=== PATIENT | female | born 1965 | race African-American/Black ===

== ENCOUNTER 2018-01-07 23:38 | Emergency (ER) | payer OTHER ==
[2018-01-08 00:39] VITALS: BP 144/77; PULSE 84; TEMP 97.8; BMI 31.3
[2018-01-08] MEDS ORDERED: ALBUTEROL SO4 2.5/IPRATROPIUM 0.5 INH SOL 3 ML VIAL.NEB. NEB ONE (01:10)
--- NOTE | 2018-01-08 01:10 | PDOC ---
History of Present Illness - General Chief Complaint: Shortness of Breath Stated Complaint: DIFFICULTY BREATHING Time Seen by Provider: 01/08/18 00:45 - History of Present Illness Initial Comments: 01/08/18 01:05 52 F presenting to ED with 1 day of chest pressure and SOB. Pt states that she feels like someone filled her lungs with water, making it hard to catch her breath. She endorses mild chest pressure associated with the SOB. Denies F/C/ Cough. Pt states that this first began a month ago. She has been to [facility] multiple times. She was admitted once and told that she had congestive heart failure. However, pt denies following up with a meat grinder at any point. Most recently, she was at [facility] 3 days ago for similar complaint of SOB. She was given a nebulizer and discharged home. Pt is active smoker but denies h/o COPD/asthma. Nonetheless, she has an albuterol pump which she has been using with some relief. Pt denies any significant leg swelling. Is not on any other medications. Past History - Past Medical History Allergies/Adverse Reactions: Allergies Allergy/AdvReac Type Severity Reaction Status Date / Time No Known Allergies Allergy Verified 10/01/13 08:23 Home Medications: Ambulatory Orders Albuterol Sulfate Inhaler - [Ventolin HFA Inhaler -] PRN 08/19/13 Oxycodone HCl/Acetaminophen [Percocet 5-325 mg Tablet -] 1 - 2 tab PO Q6H PRN # 15 tablet 10/01/13 Sulfamethoxazole/Trimethoprim [Bactrim DS -] 1 tab PO BID #28 tablet 10/01/13 Albuterol 0.083% Nebulizer Jessica [Ventolin 0.083% Nebulizer Soln -] 1 neb NEB Q6H #30 vial 01/08/18 Albuterol Sulfate Inhaler - [Ventolin HFA Inhaler -] 2 inh IH Q6H #1 inh Guaifenesin AC [Robitussin AC] 10 ml PO TID #100 liquid MDD 30 01/08/18 Methylprednisolone [Medrol Dose Gigi] 4 mg PO ASDIR #21 tablet 01/08/18 Asthma: Yes COPD: Yes HTN: Yes - Suicide/Smoking/Psychosocial Hx Smoking Status: Yes Smoking History: Current every day smoker Have you smoked in the past 12 months: Yes Number of Cigarettes Smoked Daily: 2 Information on smoking cessation initiated: No Hx Alcohol Use: No Drug/Substance Use Hx: Yes Substance Use Type: None Hx Substance Use Treatment: No Review of Systems - Review of Systems Comments:: 01/08/18 01:08 "GENERAL/CONSTITUTIONAL: No fever or chills. No weakness. HEAD, EYES, EARS, NOSE AND THROAT: No change in vision. No ear pain or discharge. No sore throat. CARDIOVASCULAR: (+) Chest pain and shortness of breath. RESPIRATORY: No Cough, No wheezing, or hemoptysis. GASTROINTESTINAL: No nausea, vomiting, diarrhea or constipation. GENITOURINARY: No dysuria, frequency, or change in urination. MUSCULOSKELETAL: No joint or muscle swelling or pain. No neck or back pain. SKIN: No rash NEUROLOGIC: No headache, vertigo, loss of consciousness, or change in strength/ sensation. ENDOCRINE: No increased thirst. No abnormal weight change. HEMATOLOGIC/LYMPHATIC: No anemia, easy bleeding, or history of blood clots. ALLERGIC/IMMUNOLOGIC: No hives or skin allergy." *Physical Exam - Vital Signs Last Vital Signs Temp Pulse Resp BP Pulse Ox 97.8 F 84 20 144/77 100 01/08/18 00:36 01/08/18 00:36 01/08/18 00:36 01/08/18 00:36 01/08/18 00:36 - Physical Exam Comments: 01/08/18 01:08 "GENERAL: Awake, alert, and fully oriented, in no acute distress HEAD: No signs of trauma EYES: PERRLA, EOMI, sclera anicteric, conjunctiva clear ENT: Auricles normal inspection, hearing grossly normal, nares patent, oropharynx clear without exudates. Moist mucosa NECK: Nontender, no stepoffs, Normal ROM, supple, no lymphadenopathy, JVD, or masses LUNGS: Breath sounds equal, clear to auscultation bilaterally. No wheezes, and no crackles HEART: Regular rate and rhythm, normal S1 and S2, no murmurs, rubs or gallops ABDOMEN: Soft, nontender, normoactive bowel sounds. No guarding, no rebound. No masses EXTREMITIES: Normal range of motion, no edema. No clubbing or cyanosis. No cords, erythema, or tenderness NEUROLOGICAL: Cranial nerves II through XII intact. 5/5 strength and sensation in all extremities, Normal speech, normal gait, normal cerebellar function SKIN: Warm, Dry, normal turgor, no rashes or lesions noted." Heart Score/ECG Review - History History: Slightly suspicious - Electrocardiogram EKG: Non specific repolarization disturbance - Age Age: 45-65 - Risk Factors Based on the list above the patient has:: No risk factors known - Troponin Troponin: </= normal limit - Score Heart Score - Total: 2 - ECG Impressions Comment:: 01/08/18 01:26 NSR, no AB/STDs, TWI in V5-V6 and aVL, intervals wnl, L axis deviation ED Treatment Course - LABORATORY CBC & Chemistry Diagram: 01/08/18 01:10 01/08/18 01:10 - RADIOLOGY Radiology Studies Ordered: Category Date Time Status CHEST PA & LAT [RAD] Stat Radiology 01/08/18 00:50 Ordered Medical Decision Making - Medical Decision Making 01/08/18 01:09 52 F with CP and SOB. Pt reportedly has h/o CHF but denies any other medical problems. Pt with no obvious signs of volume overload today. Lung exam is clear without wheezing, but given that pt reported some improvement with albuterol pump, consider COPD/asthma as pt is active smoker. Pt with no DVT/PE risk factors. Does not PERC out due to age, but pt has wells score of 0. No clinical signs of DVT. Vitals wnl. Pt has lateral TWI on EKG with no prior to compare but history is not consistent with ACS. Pt's chest tightness more likely related to cough. Nonetheless, will r/o ACS with trop. - Labs, trop, BNP - CXR - Trial of nebulizers - Reassess 01/08/18 02:33 Labs notable for BNP 3000, otherwise unremarkable. Unclear what pt's baseline BNP is. Pt with no clinical signs of volume overload, XR without clear congestive changes. Pt's SOB more likely related to COPD. Will order additional nebs and steroids. Pt signed out to Dr. Dominique @ 2am, pending re-evaluation after nebs and steroids. Case discussed in detail with oncoming Emergency Physician including history, physical exam and ancillary studies. Oncoming Emergency Physician has assumed care for the patient and will complete the evaluation and treatment. Patient is aware of the plan. *DC/Admit/Observation/Transfer Diagnosis at time of Disposition: Cough - Discharge Dispostion Disposition: HOME Condition at time of disposition: Stable - Prescriptions Prescriptions: Albuterol 0.083% Nebulizer Jessica [Ventolin 0.083% Nebulizer Soln -] 1 neb NEB Q6H #30 vial Albuterol Sulfate Inhaler - [Ventolin HFA Inhaler -] 2 inh IH Q6H #1 inh Guaifenesin AC [Robitussin AC] 10 ml PO TID #100 liquid MDD 30 Methylprednisolone [Medrol Dose Gigi] 4 mg PO ASDIR #21 tablet - Referrals Referrals: Tomasz Velazco MD [Staff Physician] - Sara Taylor MD [Staff Physician] - - Patient Instructions Printed Discharge Instructions: DI for Cough -- Adult - Post Discharge Activity - Attestations Physician Attestion: 01/09/18 00:53 I, Dr. John Knott MD, attest that this document has been prepared under my direction and personally reviewed by me in its entirety. I further attest, that it accurately reflects all work, treatment, procedures and medical decision -making performed by me.
[2018-01-08] MEDS: ALBUTEROL SO4 2.5/IPRATROPIUM 0.5 INH SOL 3 ML VIAL.NEB. NEB SCH ×3 (01:17→02:09)
[2018-01-08 01:35] LABS: BASO % 0.7 % (0-2.0); EOS % 0.4 % (0-4.5); HEMATOCRIT 35.7 % (32.4-45.2); LYMPH % 16.2 % (8-40); MCH 29.6 pg (25.7-33.7); MCHC 33.6 g/dl (32.0-36.0); MEAN CELL VOLUME 88.1 fl (80-96); MEAN PLT VOLUME 7.9 fl (7.5-11.1); MONO % 4.8 % (3.8-10.2); NEUT % 77.9 % (42.8-82.8); PLATELET COUNT 270 K/MM3 (134-434); RBC 4.05 M/mm3 (3.60-5.2); RDW 13.9 % (11.6-15.6)
[2018-01-08 01:38] LABS: VENOUS PC02 39.2 mmHg (38-52); VENOUS PH 7.41 (7.32-7.42)
[2018-01-08 02:06] LABS: ALBUMIN 3.3 g/dl (3.4-5.0); ANION GAP 10 (8-16); BILIRUBIN,TOTAL 0.4 mg/dL (0.2-1.0); BLOOD UREA NITROGEN 19 mg/dL (7-18); CALCIUM 8.4 mg/dL (8.5-10.1); CHLORIDE 107 mmol/L (98-107); CO2 25 mmol/L (21-32); CREATININE 0.9 mg/dL (0.55-1.02); GLUCOSE,RANDOM 88 mg/dL (74-106); SGOT/AST 23 U/L (15-37); SGPT/ALT 30 U/L (12-78); SODIUM 142 mmol/L (136-145); TOT PROT 6.4 g/dl (6.4-8.2)
[2018-01-08 02:07] LABS: ALK PHOS 79 U/L (45-117)
[2018-01-08 02:08] LABS: N-TERMINAL BNP 3980.27 pg/ml (5-125)
[2018-01-08] MEDS ORDERED: methylPREDNISolone NA SUCC 125 MG/2 ML VIAL IVPUSH ONE (02:24)
[2018-01-08] MEDS ORDERED: methylPREDNISolone NA SUCC 125 MG/2 ML VIAL ONE (02:29)
[2018-01-08] MEDS ORDERED: guaiFENesin/CODEINE 10 ML UNIT-DOSE CUPS PO ONE (03:25)
[2018-01-08] MEDS ORDERED: guaiFENesin/CODEINE 5 ML UNIT-DOSE CUPS PO ONE (03:28)
--- NOTE | 2018-01-08 03:32 | PDOC ---
*Physical Exam - Vital Signs Last Vital Signs Temp Pulse Resp BP Pulse Ox 97.8 F 84 20 144/77 100 01/08/18 00:36 01/08/18 00:36 01/08/18 00:36 01/08/18 00:36 01/08/18 00:36 ED Treatment Course - LABORATORY CBC & Chemistry Diagram: 01/08/18 01:10 01/08/18 01:10 - ADDITIONAL ORDERS Additional order review: Laboratory Results 01/08/18 01/08/18 01/08/18 01:10 01:10 01:10 VBG pH 7.41 POC VBG pCO2 39.2 POC VBG pO2 40.0 Mixed VBG HCO3 24.3 Sodium 142 Potassium 4.0 Chloride 107 Carbon Dioxide 25 Anion Gap 10 BUN 19 H Creatinine 0.9 Creat Clearance w eGFR > 60 Random Glucose 88 Calcium 8.4 L Total Bilirubin 0.4 AST 23 ALT 30 Alkaline Phosphatase 79 Creatine Kinase 252 H Creatine Kinase Index 0.5 CK-MB (CK-2) 1.261 Troponin I 0.02 B-Natriuretic Peptide 3980.27 H Total Protein 6.4 Albumin 3.3 L 01/08/18 01:10 RBC 4.05 MCV 88.1 MCHC 33.6 RDW 13.9 MPV 7.9 Neutrophils % 77.9 Lymphocytes % 16.2 D Monocytes % 4.8 Eosinophils % 0.4 D Basophils % 0.7 - Medications Given in the ED: ED Medications Discontinued Medications Generic Name Dose Route Start Last Admin Trade Name Freq PRN Reason Stop Dose Admin Albuterol/Ipratropium 1 amp 01/08/18 01:00 01/08/18 02:09 Duoneb - NEB 01/08/18 01:46 1 amp Q15M AWAIS Administration Methylprednisolone Sodium Succinate 125 mg 01/08/18 02:24 01/08/18 03:06 Solu-Medrol - IVPUSH 01/08/18 02:25 125 mg ONCE ONE Administration Medical Decision Making - Medical Decision Making 01/08/18 03:30 Pt feels better after treatment in the department. Pt still cough and would like something for cough. Pt discharged and medications transmitted to pharmacy *DC/Admit/Observation/Transfer Diagnosis at time of Disposition: Cough - Discharge Dispostion Disposition: HOME Condition at time of disposition: Stable Admit: No - Prescriptions Prescriptions: Albuterol 0.083% Nebulizer Jessica [Ventolin 0.083% Nebulizer Soln -] 1 neb NEB Q6H #30 vial Albuterol Sulfate Inhaler - [Ventolin HFA Inhaler -] 2 inh IH Q6H #1 inh Guaifenesin AC [Robitussin AC] 10 ml PO TID #100 liquid MDD 30 Methylprednisolone [Medrol Dose Gigi] 4 mg PO ASDIR #21 tablet - Referrals Referrals: Tomasz Velazco MD [Staff Physician] - Sara Taylor MD [Staff Physician] - - Patient Instructions Printed Discharge Instructions: DI for Cough -- Adult - Post Discharge Activity
--- NOTE | 2018-01-08 16:35 | EKG ---
Test Reason : Blood Pressure : / mmHG Vent. Rate : 084 BPM Atrial Rate : 084 BPM P-R Int : 190 ms QRS Dur : 088 ms QT Int : 368 ms P-R-T Axes : 056 -40 094 degrees QTc Int : 434 ms NORMAL SINUS RHYTHM POSSIBLE LEFT ATRIAL ENLARGEMENT LEFT AXIS DEVIATION LEFT VENTRICULAR HYPERTROPHY NONSPECIFIC T WAVE ABNORMALITY ABNORMAL ECG NO PREVIOUS ECGS AVAILABLE Confirmed by ALONDRA MORTON MD ([id number]) on 01/08/2018 4:35:20 PM Referred By: Confirmed By:ALONDRA MORTON MD
== END 2018-01-08 04:05 | disposition home or self-care (01) ==
LOC: JER 23:38
PROC: 3E0F7GC Introduction of Other Therapeutic Substance into Respiratory Tract, Via Natural or Artificial Opening (ICD-10-PCS; principal; 2018-01-07)
PROC: 3E033GC Introduction of Other Therapeutic Substance into Peripheral Vein, Percutaneous Approach (ICD-10-PCS; 2018-01-07)
DX: R05 Cough (principal)
CPT/HCPCS: 36415; 71046-TC-FY; 80053; 82550; 82553; 82803; 83880; 84484; 85025; 93005; 93010; 99281-25; J7620

== ENCOUNTER 2018-01-17 20:58 | Observation (INO) | payer OTHER ==
--- NOTE | 2018-01-17 21:19 | PDOC ---
History of Present Illness - General Chief Complaint: Shortness of Breath Stated Complaint: SHORTNESS OF BREATH Time Seen by Provider: 01/17/18 21:18 History Source: Patient Exam Limitations: No Limitations - History of Present Illness Initial Comments: 01/17/18 22:21 52 year old female with pmh of anxiety, HTN presented to the hospital with one day history of sever shortness of breath , diaphoresis, heart racing . she was sleeping around 6pm when all the symptoms start , she reports chest tightness , it feels like some one is draping water on her lungs, she experienced these episodes one a month , she was in ED here 2 weeks ago for same reasons.She reports orthopnea and dyspnea on exertion since October she start using 3-4 pillows at night , she get sob with less than a block. She denies any fever, chills, N/V/D/C , she denies any urinary symptoms, n headache , blurry vision was reported. She run of her hydroxapin 2 weeks ago. PMH: HTN , PSH: denies Allergies : denies Meds: Lisinopril 60 daily (40+20) daily, Furosemide 20 mg po daily , hydroxysine 50 mg po daily , she run out of this one 2 weeks ago Social: amoke tocacco 2-4 cig day since age of 18, drink alcohol socially,she smoke Marijuana last use 24 hour ago FH: HTN Physical Exam: General: Well norished in NAD HEad : NC/At , MM mebrance , NELDA , EOMI Neck: supple Lungs: CTA B/L , no wheezes, no accessory muscle use Heart: RRR, 3/6 holosystolic murmur LUSB, RUSB, LLSB, No RG Abdomen: soft, ND, NT , + BS , Legs: no edema , +2 DP pulse Neuro: no focal deficit Psych: appropriate mood and effect. DD: Panic attach COPD exacerbation CHF WorK up: CBC, CMP EKG cardiac profile BNP cxr 01/17/18 23:48 CXR wth no acute pathology BNP 1400 trend dwon from last visit 92603 trop >0.02 01/18/18 00:57 Past History - Past Medical History Allergies/Adverse Reactions: Allergies Allergy/AdvReac Type Severity Reaction Status Date / Time No Known Allergies Allergy Verified 01/17/18 21:04 Home Medications: Ambulatory Orders Albuterol 0.083% Nebulizer Jessica [Ventolin 0.083% Nebulizer Soln -] 1 neb NEB Q6H #30 vial 01/08/18 Guaifenesin AC [Robitussin AC] 10 ml PO TID #100 liquid MDD 30 01/08/18 Methylprednisolone [Medrol Dose Gigi] 4 mg PO ASDIR #21 tablet 01/08/18 Asthma: Yes COPD: Yes HTN: Yes - Suicide/Smoking/Psychosocial Hx Smoking Status: Yes Smoking History: Never smoked Have you smoked in the past 12 months: No Number of Cigarettes Smoked Daily: 2 Information on smoking cessation initiated: No Hx Alcohol Use: No Drug/Substance Use Hx: No Substance Use Type: None Hx Substance Use Treatment: No *Physical Exam - Vital Signs Last Vital Signs Temp Pulse Resp BP Pulse Ox 98.2 F 76 20 144/60 99 01/17/18 21:00 01/17/18 21:00 01/17/18 21:00 01/17/18 21:00 01/17/18 21:00 Heart Score/ECG Review - History History: Slightly suspicious - Electrocardiogram EKG: Non specific repolarization disturbance - Age Age: 45-65 - Risk Factors Risk Factors Heart Score: Yes Hx Hypertension, Yes Smoking History, Yes Hx Obesity Based on the list above the patient has:: 1-2 risk factors - Troponin Troponin: </= normal limit - Score Heart Score - Total: 3 - ECG Intrepretation Rhythm: Regular Rhythm (NSR, Possible left atrial enlargemnet , t wave abnormality compare to previous ekg , vent rate 75, PA interval 182, QRS durartion 86ms , QTC 444) ED Treatment Course - LABORATORY CBC & Chemistry Diagram: 01/17/18 22:40 01/17/18 22:40 *DC/Admit/Observation/Transfer Diagnosis at time of Disposition: Shortness of breath - Discharge Dispostion Admit: Yes - Referrals Referrals: ON STAFF,NOT [Primary Care Provider] - - Patient Instructions - Post Discharge Activity
[2018-01-17] MEDS ORDERED: ALBUTEROL SO4 0.083% IH SOL 2.5 MG/3 ML VIAL.NEB. NEB ONE (22:16)
[2018-01-17] MEDS ORDERED: ALBUTEROL SO4 2.5/IPRATROPIUM 0.5 INH SOL 3 ML VIAL.NEB. NEB ONE (22:52)
[2018-01-17 22:54] LABS: BASO % 0.8 % (0-2.0); HEMATOCRIT 35.8 % (32.4-45.2); LYMPH % 33.2 % (8-40); MCH 29.7 pg (25.7-33.7); MCHC 33.3 g/dl (32.0-36.0); MEAN PLT VOLUME 7.8 fl (7.5-11.1); MONO % 5.3 % (3.8-10.2); NEUT % 57.7 % (42.8-82.8); PLATELET COUNT 271 K/MM3 (134-434); RBC 4.03 M/mm3 (3.60-5.2); RDW 15.5 % (11.6-15.6); WHITE BLOOD COUNT 6.8 K/mm3 (4.0-10.0)
[2018-01-17 23:17] LABS: ANION GAP 9 (8-16); BILIRUBIN,TOTAL 0.3 mg/dL (0.2-1.0); BLOOD UREA NITROGEN 13 mg/dL (7-18); CALCIUM 7.7 mg/dL (8.5-10.1); CHLORIDE 108 mmol/L (98-107); CO2 24 mmol/L (21-32); GLUCOSE,RANDOM 95 mg/dL (74-106); SGPT/ALT 22 U/L (12-78); SODIUM 141 mmol/L (136-145); TOT PROT 6.1 g/dl (6.4-8.2)
[2018-01-17 23:19] LABS: ALK PHOS 64 U/L (45-117)
[2018-01-17 23:28] LABS: POTASSIUM 3.9 mmol/L (3.5-5.1); SGOT/AST 17 U/L (15-37)
[2018-01-17] MEDS ORDERED: LORazepam 1 MG TABLET PO ONE (23:46)
--- NOTE | 2018-01-18 00:09 | PDOC ---
Attending Attestation - Resident Resident Name: Markel Jackman - ED Attending Attestation I have performed the following: I have examined & evaluated the patient, The case was reviewed & discussed with the resident, I agree w/resident's findings & plan, Exceptions are as noted - HPI HPI: 01/18/18 00:04 The patient is a 52 year old female with history of cigarette smoking, hypertension, anxiety, who presents to the ED complaining of shortness of breath and chest tightness that began this morning. She states that her symptoms are intermittent with no known triggering factors. Her chest tightness is not pleuritic or exertional. She states that her symptoms often come and go, lasting only a few minutes at a time. She was seen here in the ED two weeks ago by myself for similar complaints. Pt denies fever or chills. No nausea, vomiting , or diaphoresis. No lightheadedness or LOC. She does endorse smoking marijuana today. Denies leg swelling. Denies recent immobilization or travel. Not on estrogen. No h/o DVT. - Physicial Exam PE: 01/18/18 00:05 "GENERAL: Awake, alert, and fully oriented, in no acute distress HEAD: No signs of trauma EYES: PERRLA, EOMI, sclera anicteric, conjunctiva clear ENT: Auricles normal inspection, hearing grossly normal, nares patent, oropharynx clear without exudates. Moist mucosa NECK: Nontender, no stepoffs, Normal ROM, supple, no lymphadenopathy, JVD, or masses LUNGS: Breath sounds equal, clear to auscultation bilaterally. No wheezes, and no crackles HEART: Regular rate and rhythm, normal S1 and S2, no murmurs, rubs or gallops ABDOMEN: Soft, nontender, normoactive bowel sounds. No guarding, no rebound. No masses EXTREMITIES: Normal range of motion, no edema. No clubbing or cyanosis. No cords, erythema, or tenderness NEUROLOGICAL: Cranial nerves II through XII intact. 5/5 strength and sensation in all extremities, Normal speech, normal gait, normal cerebellar function SKIN: Warm, Dry, normal turgor, no rashes or lesions noted. " - Medical Decision Making 01/18/18 00:10 52 F with SOB. No wheezing on exam to suggest asthma/COPD. No signs of volume overload on exam. Suspect that this is anxiety related. However, pt has EKG with new deep TW inversions in lateral leads, as well as new T wave flattening in inferior leads. Will need ACS r/o. - Labs, trop, BNP - CXR - Trial of nebs - Admit tele Heart Score/ECG Review - History History: Slightly suspicious - Electrocardiogram EKG: Non specific repolarization disturbance - Age Age: 45-65 - Risk Factors Risk Factors Heart Score: Yes Hx Hypertension, Yes Smoking History, Yes Hx Obesity Based on the list above the patient has:: >/=3 risk factors or Hx atherosclerotic disease - Troponin Troponin: </= normal limit - Score Heart Score - Total: 4 - ECG Impressions Comment:: 01/18/18 00:13 NSR, no AB/STDs, TWI in V4-V6, TW flattening in II, III, aVF (new since prior EKG 10 days ago), intervals wnl, L axis deviation
[2018-01-18] MEDS ORDERED: LORazepam 0.5 MG TABLET ONE (00:28)
--- NOTE | 2018-01-18 01:14 | HP ---
CHIEF COMPLAINT: PCP: HISTORY OF PRESENT ILLNESS: The patient is a 52 yo f w/ PMH HTN, Anxiety, CHF who comes into the ED c/o a 1 day history of acute onset SOB, diaphoresis, palpitations and chest tightness. Patient states that she was woken up from sleep with these symptoms. The patient has had several similar episodes in the past. Per the patient, she has had approx. 1 similar episode per month since October. She has been seen at multiple other hospitals for the same problem without results. Patient denies fevers, chills, nausea, vomiting, diarrhea, constipation. Patient fell asleep multiple times during the interview. ER course was notable for: (1) BNP 1452 (2) CXR WNL (3) EKG showing new t wave abnormalities since last EKG 2 weeks ago Recent Travel: none PAST MEDICAL HISTORY: anxiety HTN CHF PAST SURGICAL HISTORY: Social History: Smoking: currently smoking 1-2 cigarettes daily since she was 18 Alcohol: socially Drugs: marijuana, last use 24 hrs ago Family History: non-contributory Allergies No Known Allergies Allergy (Verified 01/17/18 21:04) HOME MEDICATIONS: Home Medications Medication Instructions Recorded Albuterol 0.083% Nebulizer Jessica 1 neb NEB Q6H #30 vial 01/08/18 [Ventolin 0.083% Nebulizer Soln -] Guaifenesin AC [Robitussin AC] 10 ml PO TID #100 liquid MDD 30 01/08/18 Methylprednisolone [Medrol Dose 4 mg PO ASDIR #21 tablet 01/08/18 Gigi] REVIEW OF SYSTEMS CONSTITUTIONAL: Absent: fever, chills, diaphoresis, generalized weakness, malaise, loss of appetite, weight change HEENT: Absent: rhinorrhea, nasal congestion, throat pain, throat swelling, difficulty swallowing, mouth swelling, ear pain, eye pain, visual changes CARDIOVASCULAR: Absent: syncope, irregular heart rate, lightheadedness, peripheral edema RESPIRATORY: Absent: cough, dyspnea with exertion, orthopnea, wheezing, stridor, hemoptysis GASTROINTESTINAL: Absent: abdominal pain, abdominal distension, nausea, vomiting, diarrhea, constipation, melena, hematochezia GENITOURINARY: Absent: dysuria, frequency, urgency, hesitancy, hematuria, flank pain, genital pain MUSCULOSKELETAL: Absent: myalgia, arthralgia, joint swelling, back pain, neck pain SKIN: Absent: rash, itching, pallor HEMATOLOGIC/IMMUNOLOGIC: Absent: easy bleeding, easy bruising, lymphadenopathy, frequent infections ENDOCRINE: Absent: unexplained weight gain, unexplained weight loss, heat intolerance, cold intolerance NEUROLOGIC: Absent: headache, focal weakness or paresthesias, dizziness, unsteady gait, seizure, mental status changes, bladder or bowel incontinence PSYCHIATRIC: Absent: anxiety, depression, suicidal or homicidal ideation, hallucinations. PHYSICAL EXAMINATION Vital Signs - 24 hr 01/17/18 21:00 Temperature 98.2 F Pulse Rate 76 Respiratory 20 Rate Blood Pressure 144/60 O2 Sat by Pulse 99 Oximetry (%) GENERAL: Awake, alert, and fully oriented, in no acute distress. Patient appears awake while talking, but falls asleep multiple times during the interview. HEAD: Normal with no signs of trauma. NECK: Normal range of motion, supple without lymphadenopathy, JVD, or masses. LUNGS: Breath sounds equal, clear to auscultation bilaterally. No wheezes, and no crackles. No accessory muscle use. HEART: Regular rate and rhythm, normal S1 and S2. Diastolic decrescendo murmur heard at the right sternal border. ABDOMEN: Soft, nontender, not distended, normoactive bowel sounds, no guarding, no rebound, no masses. No hepatomegaly or splenomegaly. LOWER EXTREMITIES: 2+ pulses, warm, well-perfused. No calf tenderness. No peripheral edema. NEUROLOGICAL: Cranial nerves II-X intact. Normal speech. SKIN: Warm, dry, normal turgor, no rashes or lesions noted, normal capillary refill. Laboratory Results - last 24 hr 01/17/18 01/17/18 01/17/18 22:40 22:40 22:40 WBC 6.8 RBC 4.03 Hgb 12.0 Hct 35.8 MCV 89.0 MCH 29.7 MCHC 33.3 RDW 15.5 D Plt Count 271 MPV 7.8 Neutrophils % 57.7 D Lymphocytes % 33.2 D Monocytes % 5.3 Eosinophils % 3.0 D Basophils % 0.8 Sodium 141 Potassium 3.9 Chloride 108 H Carbon Dioxide 24 Anion Gap 9 BUN 13 Creatinine 1.0 Creat Clearance w eGFR 58.69 Random Glucose 95 Calcium 7.7 L Total Bilirubin 0.3 D AST 17 ALT 22 Alkaline Phosphatase 64 Creatine Kinase 89 Troponin I 0.02 B-Natriuretic Peptide Total Protein 6.1 L Albumin 3.0 L 01/17/18 22:40 WBC RBC Hgb Hct MCV MCH MCHC RDW Plt Count MPV Neutrophils % Lymphocytes % Monocytes % Eosinophils % Basophils % Sodium Potassium Chloride Carbon Dioxide Anion Gap BUN Creatinine Creat Clearance w eGFR Random Glucose Calcium Total Bilirubin AST ALT Alkaline Phosphatase Creatine Kinase Troponin I B-Natriuretic Peptide 1452.21 H Total Protein Albumin ASSESSMENT/PLAN: The patient is a 52 yo f w/ PMH CHF and HTN who is being admitted for further workup of a murmur and EKG changes. #SOB, chest pain and palpitations likely 2/2 anxiety r/o arrhythmia -Trop negative x1 -EKG showing new t wave abnormalities -trend trops -cardio consult #diastolic decrescendo murmur -Echo in am #HTN -according to patient, home meds include a 40mg and 20mg pill of lisinopril daily -will administer lisinopril 40mg until home meds verified #CHF -c/w home lasix 40 #Anxiety -holding home hydroxyzine 50mg #FEN -no fluids indicated -lytes WNL -Sodium controlled diet #prophy -patient ambulatory, no prophy indicated #Dispo -Admit to tele Obs Visit type - Emergency Visit Emergency Visit: Yes ED Registration Date: 01/18/18 Care time: The patient presented to the Emergency Department on the above date and was hospitalized for further evaluation of their emergent condition. - New Patient This patient is new to me today: Yes Date on this admission: 01/18/18 - Critical Care Critical Care patient: No Hospitalist Screening - Colonoscopy Questionnaire Colonoscopy Questionnaire: Colonoscopy Questionnaire - Patient: 50 - 75 years old and never had a screening colonoscopy: Unknown History of colon or rectal polyps, or CA: Unknown History of IBD, Crohn's disease or UC: Unknown History of abdominal radiation therapy as a child: Unknown - Relative: 1 with colon or rectal CA, or polyps at age 60 or younger: Unknown Colon or rectal CA diagnosed at age 45 or younger: Unknown Multiple relatives with colon or rectal CA: Unknown - Outcome: Screening Result: Negative Screen
--- NOTE | 2018-01-18 01:23 | PN ---
Teaching Attending Note Name of Resident: Fernando Mata ATTENDING PHYSICIAN STATEMENT I saw and evaluated the patient. I reviewed the resident's note and discussed the case with the resident. I agree with the resident's findings and plan as documented. SUBJECTIVE: This is a 52 year old woman with a history of HTN, anxiety, CHF who comes to the ED complaining of SOB with chest tightness, diaphoresis, and palpitations that woke her from sleep. She has had several similar episodes in the last 3 months. She denies fevers, chills. OBJECTIVE: Vital Signs Period Temp Pulse Resp BP Sys/Vergara Pulse Ox Last 24 Hr 98.2 F 76 20 144/60 99 HEART: S1S2, RRR, (+) 2/6 diastolic murmur LUNGS: Clear ABDOMEN: Soft, non-distended, non-tender, normal BS EXTREMITIES: No edema Laboratory Tests 01/17/18 01/17/18 01/17/18 22:40 22:40 22:40 WBC 6.8 RBC 4.03 Hgb 12.0 Hct 35.8 MCV 89.0 MCH 29.7 MCHC 33.3 RDW 15.5 D Plt Count 271 MPV 7.8 Neutrophils % 57.7 D Lymphocytes % 33.2 D Monocytes % 5.3 Eosinophils % 3.0 D Basophils % 0.8 Sodium 141 Potassium 3.9 Chloride 108 H Carbon Dioxide 24 Anion Gap 9 BUN 13 Creatinine 1.0 Creat Clearance w eGFR 58.69 Random Glucose 95 Calcium 7.7 L Total Bilirubin 0.3 D AST 17 ALT 22 Alkaline Phosphatase 64 Creatine Kinase 89 Troponin I 0.02 B-Natriuretic Peptide Total Protein 6.1 L Albumin 3.0 L 01/17/18 22:40 WBC RBC Hgb Hct MCV MCH MCHC RDW Plt Count MPV Neutrophils % Lymphocytes % Monocytes % Eosinophils % Basophils % Sodium Potassium Chloride Carbon Dioxide Anion Gap BUN Creatinine Creat Clearance w eGFR Random Glucose Calcium Total Bilirubin AST ALT Alkaline Phosphatase Creatine Kinase Troponin I B-Natriuretic Peptide 1452.21 H Total Protein Albumin Home Medications Medication Instructions Recorded Albuterol 0.083% Nebulizer Jessica 1 neb NEB Q6H #30 vial 01/08/18 [Ventolin 0.083% Nebulizer Soln -] Guaifenesin AC [Robitussin AC] 10 ml PO TID #100 liquid MDD 30 01/08/18 Methylprednisolone [Medrol Dose 4 mg PO ASDIR #21 tablet 01/08/18 Gigi] ASSESSMENT AND PLAN: This is a 52 year old woman with a history of HTN, anxiety, CHF who presented to the ED with SOB, chest tightness, diaphoresis, and palpitations that woke her from sleep. 1. Chest pain with SOB and palpitations - EKG shows new T wave inversions (since 01/08) - Observe on telemetry - Serial troponins - Start aspirin - Echocardiogram to evaluate valves, wall motion, EF - Cardiology consult 2. CHF - No evidence of acute CHF - Continue Lisinopril, Lasix - Echocardiogram 3. Anxiety
[2018-01-18 05:38] LABS: EOS % 2.6 % (0-4.5); HEMATOCRIT 35.2 % (32.4-45.2); HEMOGLOBIN 11.7 GM/dL (10.7-15.3); LYMPH % 37.8 % (8-40); MCH 29.1 pg (25.7-33.7); MCHC 33.2 g/dl (32.0-36.0); MEAN CELL VOLUME 87.8 fl (80-96); MEAN PLT VOLUME 7.8 fl (7.5-11.1); MONO % 5.7 % (3.8-10.2); NEUT % 52.9 % (42.8-82.8); PLATELET COUNT 265 K/MM3 (134-434); RBC 4.01 M/mm3 (3.60-5.2); RDW 14.6 % (11.6-15.6); WHITE BLOOD COUNT 6.2 K/mm3 (4.0-10.0)
[2018-01-18 05:55] LABS: INR 1.03 (0.82-1.09); PROTHROMBIN TIME (PATIENT) 11.6 SEC (9.98-11.88)
[2018-01-18 05:57] LABS: ACTIVATED PTT 28.3 SECONDS (26.9-34.4)
[2018-01-18 06:33] VITALS: BMI 32.4
--- NOTE | 2018-01-18 09:04 | PN ---
Progress Note (short form) - Note Progress Note: Subjective: No fever or chills , has no CP now , has no abd pain , reports having underlying psych disorder that's not treated , has a psychiatrist but did not tell him about these episodes that started about 6 weeks ago. sob, chest pressure , sweating , radiation to R arm while sleeping. has SOB with climbing stairs , can walk 1/4 a block only due to SOB but no CP was in [facility] 3 weeks ago, stress test and echo were done , per her. she was diagnosed with CHF given lisinopril and lasix , but her PCP dc the lasix. she thinks her legs are swollen sx free now Objective: Vital Signs: Last Vital Signs Temp Pulse Resp BP Pulse Ox 97.4 F L 74 18 133/62 98 01/18/18 08:29 01/18/18 08:29 01/18/18 08:30 01/18/18 08:29 01/18/18 08:30 Laboratory Results - last 24 hr 01/17/18 01/17/18 01/17/18 22:40 22:40 22:40 WBC 6.8 RBC 4.03 Hgb 12.0 Hct 35.8 MCV 89.0 MCH 29.7 MCHC 33.3 RDW 15.5 D Plt Count 271 MPV 7.8 Neutrophils % 57.7 D Lymphocytes % 33.2 D Monocytes % 5.3 Eosinophils % 3.0 D Basophils % 0.8 PT with INR INR PTT (Actin FS) Sodium 141 Potassium 3.9 Chloride 108 H Carbon Dioxide 24 Anion Gap 9 BUN 13 Creatinine 1.0 Creat Clearance w eGFR 58.69 Random Glucose 95 Calcium 7.7 L Total Bilirubin 0.3 D AST 17 ALT 22 Alkaline Phosphatase 64 Creatine Kinase 89 Troponin I 0.02 B-Natriuretic Peptide Total Protein 6.1 L Albumin 3.0 L 01/17/18 01/18/18 01/18/18 22:40 05:00 05:00 WBC 6.2 RBC 4.01 Hgb 11.7 Hct 35.2 MCV 87.8 MCH 29.1 MCHC 33.2 RDW 14.6 Plt Count 265 MPV 7.8 Neutrophils % 52.9 Lymphocytes % 37.8 Monocytes % 5.7 Eosinophils % 2.6 Basophils % 1.0 PT with INR 11.60 INR 1.03 PTT (Actin FS) 28.3 Sodium Potassium Chloride Carbon Dioxide Anion Gap BUN Creatinine Creat Clearance w eGFR Random Glucose Calcium Total Bilirubin AST ALT Alkaline Phosphatase Creatine Kinase Troponin I B-Natriuretic Peptide 1452.21 H Total Protein Albumin 01/18/18 05:00 WBC RBC Hgb Hct MCV MCH MCHC RDW Plt Count MPV Neutrophils % Lymphocytes % Monocytes % Eosinophils % Basophils % PT with INR INR PTT (Actin FS) Sodium Potassium Chloride Carbon Dioxide Anion Gap BUN Creatinine Creat Clearance w eGFR Random Glucose Calcium Total Bilirubin AST ALT Alkaline Phosphatase Creatine Kinase Troponin I Cancelled B-Natriuretic Peptide Total Protein Albumin Physical Exam: NAD , AAOx3. HEENT: no JVD, MMM, pale conjunctivae, symmetric face , round equal pupils . CV: RRR, 2/6 DM heard all over precordium, no JVD Lungs: CTAB Abd: sfot, NT, ND , NL BS Ext:no edema or erythema Imaging: cxray reviewed. CT scan of abd /pelvis ( report ) reviewed form 10/08 . 2 RLL pulmonary nodules EKG reviewed. Assessment/Plan: 52 y/o lady with h/o anxiety, recent diagnosis of CHF at [facility] , , and HTN who presneted with recurrent episodes of SOB, chest pressure. 1- Recurrent episodes of chest pressure and SOB : description of her sx gos with panic attacks. to me she looks euvolemic and no signs of acute CHF ( not sure about previous w/ u for CHF at [facility] ) although her sx does not fit with ACS , but her EKG showed worsening TWI in lateral leads. L axis deviation not changed. she also reports exercise intolerance - will obtain Echo tomorrow - will obtain Stress test report from [facility] tomorrow . - trop neg x 2 . no active cp now. - tele with no events - f/u with her psych for possible starting SSRI and psychotherapy - card consult pending 2- H/o CHF: not clear aboput details of Diagnosis ( dx in [facility] 3 weeks ago). not clear D or S - now looks euvolemic - cont her home lasix 40 - cont lisinopril give 40 daily ( at home prescribed 60 mg ) - check echo. - has diastolic murmur 3- Anxiety: avoid benzos. out pt f/u with her pshych for senior care management 4- RLL nodules seen on CT of abd/pelvis 10/08. pt informed of need to f/u with PCP for serial imaging to r/o cancer mahnaz sheis a smoker. dispo :cont to monitor Visit type - Emergency Visit Emergency Visit: Yes ED Registration Date: 01/18/18 Care time: The patient presented to the Emergency Department on the above date and was hospitalized for further evaluation of their emergent condition. - New Patient This patient is new to me today: Yes Date on this admission: 01/18/18 - Critical Care Critical Care patient: No
[2018-01-18] MEDS: FUROSEMIDE 40 MG TABLET (FP) PO SCH (09:33)
[2018-01-18] MEDS: ASPIRIN COATED 81 MG TABLET.EC PO SCH (09:33)
[2018-01-18 10:17] LABS: ALBUMIN 2.9 g/dl (3.4-5.0); ALK PHOS 59 U/L (45-117); ANION GAP 6 (8-16); BILIRUBIN,TOTAL 0.3 mg/dL (0.2-1.0); BLOOD UREA NITROGEN 10 mg/dL (7-18); CALCIUM 8.1 mg/dL (8.5-10.1); CHLORIDE 110 mmol/L (98-107); CO2 26 mmol/L (21-32); CREATININE 0.9 mg/dL (0.55-1.02); GLUCOSE,RANDOM 84 mg/dL (74-106); MAGNESIUM 2.1 mg/dL (1.8-2.4); POTASSIUM 3.7 mmol/L (3.5-5.1); SGOT/AST 11 U/L (15-37); SGPT/ALT 17 U/L (12-78); SODIUM 142 mmol/L (136-145); TOT PROT 5.6 g/dl (6.4-8.2)
[2018-01-18] MEDS: LISINOPRIL 20 MG TABLET (FP) PO SCH (10:28)
--- NOTE | 2018-01-18 17:03 | CON.CARD ---
Consult Consult Specialty:: Cardiology - History of Present Illness Chief Complaint: SOB. Palpitations History of Present Illness: This is a 52 year old female with a PMH of HTN. She presents now with an episode shortness of breath which spontaneously resolved and then she developed palpitations that lasted for several minutes but also resolved. She has had a previous cardiac work up at [facility]. She also suffers from anxiety. CXR notes a large heart. - Past Medical History ...: No - Alcohol/Substance Use Hx Alcohol Use: Yes (SOCIALLY) - Smoking History Smoking history: Current some day smoker Have you smoked in the past 12 months: No Aproximately how many cigarettes per day: 2 Home Medications - Allergies Allergies/Adverse Reactions: Allergies Allergy/AdvReac Type Severity Reaction Status Date / Time No Known Allergies Allergy Verified 01/17/18 21:04 - Home Medications Home Medications: Ambulatory Orders Albuterol 0.083% Nebulizer Jessica [Ventolin 0.083% Nebulizer Soln -] 1 neb NEB Q6H #30 vial 01/08/18 Guaifenesin AC [Robitussin AC] 10 ml PO TID #100 liquid MDD 30 01/08/18 Methylprednisolone [Medrol Dose Gigi] 4 mg PO ASDIR #21 tablet 01/08/18 Furosemide [Lasix] 40 mg PO DAILY 01/18/18 Hydroxyzine HCl 50 mg PO DAILY 01/18/18 Lisinopril 20 mg PO DAILY 01/18/18 Lisinopril [Zestril] 40 mg PO DAILY 01/18/18 Review of Systems Findings/Remarks: Asd per HPI Vital Signs: Vital Signs Temperature 98.3 F 01/18/18 14:00 Pulse Rate 71 01/18/18 14:00 Respiratory Rate 20 01/18/18 14:00 Blood Pressure 197/71 01/18/18 14:00 O2 Sat by Pulse Oximetry (%) 98 01/18/18 08:30 Constitutional: Yes: Well Nourished Eyes: Yes: WNL HENT: Yes: WNL Neck: Yes: WNL Respiratory: Yes: CTA Bilaterally Gastrointestinal: Yes: Soft Cardiovascular: Yes: Regular Rate and Rhythm (NL S1S2, grossly non focal) JVD: No Extremities: Yes: WNL Edema: LLE: Trace, RLE: Trace Neurological: Yes: Alert, Oriented (Grossly non focal) - Other Data Labs, Other Data: CBC, BMP 01/18/18 05:00 01/18/18 05:00 INR, PTT INR 1.03 (0.82-1.09) 01/18/18 05:00 Troponin, BNP 01/17/18 01/17/18 01/18/18 22:40 22:40 05:00 Troponin I 0.02 0.02 B-Natriuretic Peptide 1452.21 H 01/18/18 05:00 Troponin I Cancelled B-Natriuretic Peptide Troponin, BNP 01/17/18 01/17/18 01/18/18 22:40 22:40 05:00 Troponin I 0.02 0.02 B-Natriuretic Peptide 1452.21 H 01/18/18 05:00 Troponin I Cancelled B-Natriuretic Peptide Assessment/Plan CHF BNP 1452 CXR suggesting a large a heart Would obtain an echocardiogram Would Give Lasix 40 mg IVSS Daily I's/O's/Wt's/Lytes HTN Will likely need additional agents for BP Continue Lisinopril 40 mg daily for now BP is 197/71 mmHg, would add amlodipine 5 mg PO daily.
[2018-01-18] MEDS ORDERED: amLODIPine BESYLATE 5 MG TABLET (FP) PO ONE (19:44)
--- NOTE | 2018-01-18 21:28 | EKG ---
Test Reason : Blood Pressure : / mmHG Vent. Rate : 073 BPM Atrial Rate : 073 BPM P-R Int : 198 ms QRS Dur : 084 ms QT Int : 394 ms P-R-T Axes : 054 -45 216 degrees QTc Int : 434 ms NORMAL SINUS RHYTHM LEFT ANTERIOR FASCICULAR BLOCK MINIMAL VOLTAGE CRITERIA FOR LVH, MAY BE NORMAL VARIANT T WAVE ABNORMALITY, CONSIDER ANTEROLATERAL ISCHEMIA ABNORMAL ECG WHEN COMPARED WITH ECG OF 17-JAN-2018 22:48, NO SIGNIFICANT CHANGE WAS FOUND Confirmed by MASON BLACKBURN MD ([id number]) on 01/18/2018 9:28:26 PM Referred By: Confirmed By:MASON BLACKBURN MD
--- NOTE | 2018-01-18 21:31 | EKG ---
Test Reason : Blood Pressure : / mmHG Vent. Rate : 075 BPM Atrial Rate : 075 BPM P-R Int : 182 ms QRS Dur : 086 ms QT Int : 398 ms P-R-T Axes : 075 -47 150 degrees QTc Int : 444 ms NORMAL SINUS RHYTHM POSSIBLE LEFT ATRIAL ENLARGEMENT LEFT ANTERIOR FASCICULAR BLOCK LEFT VENTRICULAR HYPERTROPHY T WAVE ABNORMALITY, CONSIDER LATERAL ISCHEMIA ABNORMAL ECG Confirmed by MASON BLACKBURN MD ([id number]) on 01/18/2018 9:31:28 PM Referred By: Confirmed By:MASON BLACKBURN MD
[2018-01-18] MEDS ORDERED: MELATONIN 5 MG TABLETS PO ONE (22:15)
[2018-01-18] MEDS ORDERED: guaiFENesin/D-M SUGAR-FREE/ACLHOL-FREE 118 ML BOTTLE PO ONE (22:15)
[2018-01-18] MEDS ORDERED: guaiFENesin/D-METHORPHAN HB 10 ML UNIT-DOSE CUPS PO ONE (22:30)
[2018-01-18] MEDS ORDERED: guaiFENesin/D-METHORPHAN HB 5 ML UNIT-DOSE CUPS PO ONE (22:30)
[2018-01-19] MEDS ORDERED: MELATONIN 5 MG TABLETS PO ONE (03:30)
[2018-01-19] MEDS ORDERED: diphenhydrAMINE HCL 25 MG CAPSULE (FP) PO ONE (04:17)
[2018-01-19] MEDS ORDERED: amLODIPine BESYLATE 5 MG TABLET (FP) PO SCH (10:00)
--- NOTE | 2018-01-19 10:20 | PN ---
Progress Note, Physician Chief Complaint: No chest pain, sob, or palpitations Occasional PVC on tele History of Present Illness: This is a 52 year old female with a PMH of HTN. She presents now with an episode shortness of breath which spontaneously resolved and then she developed palpitations that lasted for several minutes but also resolved. She has had a previous cardiac work up at [facility]. She also suffers from anxiety. CXR notes a large heart. - Current Medication List Current Medications: Active Medications Amlodipine Besylate (Norvasc -) 5 mg PO DAILY [facility] Aspirin (Ecotrin -) 81 mg PO DAILY [facility] Last Admin: 01/18/18 09:33 Dose: 81 mg Furosemide (Lasix -) 40 mg PO DAILY [facility] Last Admin: 01/18/18 09:33 Dose: 40 mg Lisinopril (Prinivil) 40 mg PO DAILY [facility] Last Admin: 01/18/18 10:28 Dose: 40 mg - Objective Vital Signs: Vital Signs Temperature 98.2 F 01/19/18 08:32 Pulse Rate 86 01/19/18 08:32 Respiratory Rate 20 01/19/18 08:32 Blood Pressure 146/81 01/19/18 08:32 O2 Sat by Pulse Oximetry (%) 100 01/19/18 08:32 Constitutional: Yes: No Distress Neck: Yes: Supple Cardiovascular: Yes: Regular Rate and Rhythm, S1, S2. No: JVD, Murmur Respiratory: Yes: CTA Bilaterally Gastrointestinal: Yes: Normal Bowel Sounds, Soft Extremities: Yes: WNL Edema: No Labs: CBC, BMP 01/18/18 05:00 01/18/18 05:00 INR, PTT INR 1.03 (0.82-1.09) 01/18/18 05:00 Assessment/Plan This is a 52 year old female with a PMH of HTN. She presents now with an episode shortness of breath which spontaneously resolved and then she developed palpitations that lasted for several minutes but also resolved. She has had a previous cardiac work up at [facility]. She also suffers from anxiety. CXR notes a large heart. 1) HTN -BP improving with lisinopril and amlodipine Would continue this regimen. Room to increase amlodipine if BP rises 2) CV -Patient remains asymptomatic Tele with no significant events CE's negative EKG with lateral T wave abnormalities. Plan for echocardiogram Reports that she had stress test at [facility] 5 weeks or so ago please obtain results will need cardiology follow up as outpatient.
[2018-01-19] MEDS: ASPIRIN COATED 81 MG TABLET.EC PO SCH (10:26)
[2018-01-19] MEDS: FUROSEMIDE 40 MG TABLET (FP) PO SCH (10:26)
[2018-01-19] MEDS: LISINOPRIL 20 MG TABLET (FP) PO SCH (10:26)
[2018-01-19 14:35] VITALS: BP 128/73; PULSE 87; TEMP 98.4
--- NOTE | 2018-01-19 16:18 | PN ---
Teaching Attending Note Name of Resident: Fernando Mata ATTENDING PHYSICIAN STATEMENT I saw and evaluated the patient. I reviewed the resident's note and discussed the case with the resident. I agree with the resident's findings and plan as documented. SUBJECTIVE: No fever or chills. no CP , no anxiety no SOB episodes last night . OBJECTIVE: NAD , AAOx3. HEENT: no JVD, CV: RRR, 2/6 DM heard all over precordium, no JVD Lungs: CTAB Ext:no edema or erythema Assessment/Plan: 52 y/o lady with h/o anxiety, recent diagnosis of CHF at [facility] , , and HTN who presneted with recurrent episodes of SOB, chest pressure. 1- Recurrent episodes of chest pressure and SOB :likely PND form severe aortic regurgitation other possibility , now less likely after echo, is panic attacks - echo reviewed - will discuss with cardiology finding of severe AR probably causing her sx - stress test form [facility] obtained, will review 2- H/o CHF: probably diastolic in nature - now looks euvolemic - cont her home lasix 40 3- HTN: cont lisinopril 40 daily and norvasc 4- Anxiety: avoid benzos. out pt f/u with her pshych for snf management 5- RLL nodules seen on CT of abd/pelvis 10/08. pt aware of need to follow dispo :depends on d/w card about sever AR and stress test results
--- NOTE | 2018-01-19 18:52 | DS ---
Physical Exam: SUBJECTIVE: Patient seen and examined at bedside. The patient feels well today and is eager to go home. OBJECTIVE: Vital Signs Period Temp Pulse Resp BP Sys/Vergara Pulse Ox Last 24 Hr 97.8 F-98.4 F 76-87 18-20 128-146/59-81 100-100 PHYSICAL EXAM GENERAL: The patient is awake, alert, and fully oriented, in no acute distress. LUNGS: Breath sounds equal, clear to auscultation bilaterally, no wheezes, no crackles, no accessory muscle use. HEART: Regular rate and rhythm, S1, S2. Diastolic decrescendo murmur heard all over the precordium. ABDOMEN: Soft, nontender, nondistended, normoactive bowel sounds, no guarding, no rebound, no hepatosplenomegaly, no masses. EXTREMITIES: 2+ pulses, warm, well-perfused, no edema. NEUROLOGICAL: Cranial nerves II through X grossly intact. Normal speech, gait not observed. SKIN: Warm, dry, normal turgor, no rashes or lesions noted. HOSPITAL COURSE: Date of Admission:01/18/18 The patient is a 52 yo f w/ PMH HTN, Anxiety, CHF who came into the ED c/o a 1 day history of acute onset SOB, diaphoresis, palpitations and chest tightness which woke her up from sleep. The patient had several similar episodes in the past; approx. 1 similar episode per month since October. In the ED, her EKG showed nonspecific t-wave abnormalities which were not seen on her previous EKG 2 weeks prior to admission. A diastolic murmur unknown to the patient was also heard. The patient was admitted for further workup of these two abnormalities. A CXR showed cardiomegaly. Cardiology was consulted. An echo revealed severe aortic regurgitation with a preserved ejection fraction. Records obtained from [facility] showed a normal Lexiscan pharmacologic stress test. Her hospital course was complicated by hypertension. She was treated with norvasc, lisinopril and Lasix. Cardiology was eager to keep her in the hospital in order to discuss options for repairing the valve as this was likely the cause of her symptoms. The patient was eager to be discharged to take care of her two children, who were at home alone. The risks and benefits of early discharge were discussed with the patient, including worsening of her heart failure as well as morbidity and mortality. The patient verbalized understanding of these risks and elected to be discharged with close outpatient cardiology follow up. Cardiology was made aware of this decision. The patient was discharged on norvasc 5mg daily. Her home lisinopril dose was decreased from 60mg to 40mg. She was advised to follow up with a rubber goods finisher within one week of discharge. She was also advised to follow up with a psychologist for her anxiety as well as at the resident clinic. Contact information for all of the suggested providers was provided to the patient in her discharge paperwork. Date of Discharge: 01/19/18 Minutes to complete discharge: 58 Discharge Summary Reason For Visit: SHORTNESS OF BREATH Condition: Improved - Instructions Diet, Activity, Other Instructions: You were admitted for a workup of your heart murmur and palpitations. You have aortic regurgitation ( valve problem which could be responsible for our symptoms ) You should STOP taking your Prednisone. We are starting you on a new medication for your blood pressure. This medication is called Norvasc (Amlodipine). You should take 5mg of this medication once per day. take only 40 mg of lisinopril , not 60 mg You should follow up with a rubber goods finisher within 1 week of going home. This is very important, as your aortic regurgitation can get worse if it is not fixed. Information for Dr. Eli will be included in your discharge paperwork. Please call to make an appointment. ([phone]) You should also follow up with a psychiatrist for some help with your anxiety. You should follow up at the resident clinic within one week of going home. If you begin to feel worsening palpitations, shortness of breath, chest pain or if any of your symptoms get worse, please call your doctor immediately or return to the emergency department. Referrals: Danica James MD [Staff Physician] - Fernando Mata RES [Resident] - Brendon Eli MD [Staff Physician] - 1 Week Disposition: HOME - Home Medications Comprehensive Discharge Medication List: Ambulatory Orders Albuterol 0.083% Nebulizer Jessica [Ventolin 0.083% Nebulizer Soln -] 1 neb NEB Q6H #30 vial 01/08/18 Guaifenesin AC [Robitussin AC -] 10 ml PO TID #100 liquid MDD 30 01/08/18 Furosemide [Lasix] 40 mg PO DAILY 01/18/18 Hydroxyzine HCl 50 mg PO DAILY 01/18/18 Lisinopril [Zestril] 40 mg PO DAILY 01/18/18 Amlodipine Besylate [Norvasc -] 5 mg PO DAILY #30 tablet 01/19/18 This patient is new to me today: No Emergency Visit: Yes ED Registration Date: 01/18/18 Care time: The patient presented to the Emergency Department on the above date and was hospitalized for further evaluation of their emergent condition. Critical Care patient: No - Discharge Referral Referred to [facility] No
[2018-01-20] MEDS ORDERED: LISINOPRIL 20 MG TABLET (FP) PO SCH (10:00)
== END 2018-01-19 18:44 | disposition home or self-care (01) ==
LOC: JER 20:58 → JERBED 01-18 01:00 → J4W 01-18 05:07
PROVIDERS: ADMIT Internal Medicine; ATTEND Internal Medicine
PROC: 3E0F7GC Introduction of Other Therapeutic Substance into Respiratory Tract, Via Natural or Artificial Opening (ICD-10-PCS; principal; 2018-01-18)
DX: R06.02 Shortness of breath (principal); R07.89 Other chest pain; R00.2 Palpitations; I10 Essential (primary) hypertension; I50.9 Heart failure, unspecified; F41.9 Anxiety disorder, unspecified; F17.210 Nicotine dependence, cigarettes, uncomplicated; E66.9 Obesity, unspecified; Z68.32 Body mass index [BMI] 32.0-32.9, adult; I35.1 Nonrheumatic aortic (valve) insufficiency
CPT/HCPCS: 36415; 71046-TC-FY; 80053; 82550; 83735; 83880; 84100; 84484; 85025; 85610; 85730; 93005; 93010; 93306-TC; 94640; 99283-25; 99284-25; G0378

== ENCOUNTER 2018-12-09 14:20 | Inpatient (IN) | payer OTHER ==
[2018-12-09 15:13] VITALS: BMI 32.3
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
[2018-12-09] MEDS ORDERED: LOPERAMIDE HCL 2 MG CAPSULE PO PRN (17:28)
[2018-12-09] MEDS ORDERED: P-EPHED 60MG/TRIPROLIDI 2.5MG TABLET PO PRN (17:28)
[2018-12-09] MEDS ORDERED: MENTHOL/PHENOL 1 EACH UD MM PRN (17:28)
[2018-12-09] MEDS ORDERED: ACETAMINOPHEN 325 MG TABLET (FP) PO PRN (17:28)
[2018-12-09] MEDS ORDERED: MAG HYDROX/AL HYDROX/SIMETH 30 ML UNIT-DOSE CUP PO PRN (17:28)
[2018-12-09] MEDS ORDERED: hydrOXYzine PAMOATE 25 MG CAPSULE (FP) PO PRN (17:28)
[2018-12-09] MEDS ORDERED: MAGNESIUM HYDROX 2400MG/30ML ORAL SUSPENSION 30 ML CUP PO PRN (17:28)
[2018-12-09] MEDS ORDERED: IBUPROFEN 400 MG TABLET (FP) PO PRN (17:28)
[2018-12-09] MEDS ORDERED: MAGNESIUM CITRATE 300 ML BOTTLE PO PRN (17:28)
[2018-12-09] MEDS ORDERED: guaiFENesin/D-METHORPHAN HB 10 ML UNIT-DOSE CUPS PO PRN (17:28)
[2018-12-09] MEDS: THIAMINE HCL 100 MG TABLET (FP) PO SCH (22:02)
[2018-12-09] MEDS: MELATONIN 5 MG TABLETS PO PRN (22:03)
[2018-12-09] MEDS ORDERED: TUBERCULIN PPD 5 TU/0.1ML VIAL ID ONE (22:05)
[2018-12-09] MEDS: METOPROLOL TARTRATE 25 MG TABLET (FP) PO SCH (22:27)
[2018-12-10] MEDS ORDERED: LISINOPRIL 20 MG TABLET (FP) PO SCH (10:00)
[2018-12-10] MEDS ORDERED: NICOTINE 14 MG/24 HOURS TOPICAL PATCH TD SCH (10:00)
[2018-12-10] MEDS ORDERED: amLODIPine BESYLATE 5 MG TABLET (FP) PO SCH (10:00)
[2018-12-10] MEDS: METOPROLOL TARTRATE 25 MG TABLET (FP) PO SCH ×2 (10:40→21:47)
[2018-12-10] MEDS: ASPIRIN COATED 81 MG TABLET.EC PO SCH (10:40)
[2018-12-10] MEDS: PRENATAL VITAMINS W/ FOLIC ACID TABLET (FP) PO SCH (10:40)
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
[2018-12-10 14:49] LABS: HEMATOCRIT 40.3 % (32.4-45.2); HEMOGLOBIN 13.6 GM/dL (10.7-15.3); MCH 29.9 pg (25.7-33.7); MCHC 33.7 g/dl (32.0-36.0); MEAN CELL VOLUME 88.8 fl (80-96); MEAN PLT VOLUME 8.1 fl (7.5-11.1); PLATELET COUNT 260 K/MM3 (134-434); RBC 4.54 M/mm3 (3.60-5.2); RDW 16.5 % (11.6-15.6); WHITE BLOOD COUNT 3.7 K/mm3 (4.0-10.0)
[2018-12-10 15:12] LABS: ALBUMIN 3.8 g/dl (3.4-5.0); ALK PHOS 100 U/L (45-117); ANION GAP 4 MMOL/L (8-16); BILIRUBIN,TOTAL 0.6 mg/dL (0.2-1); BLOOD UREA NITROGEN 10 mg/dL (7-18); CALCIUM 8.5 mg/dL (8.5-10.1); CHLORIDE 109 mmol/L (98-107); CO2 28 mmol/L (21-32); CREATININE 0.9 mg/dL (0.55-1.3); GLUCOSE,RANDOM 77 mg/dL (74-106); POTASSIUM 4.5 mmol/L (3.5-5.1); SGOT/AST 18 U/L (15-37); SGPT/ALT 22 U/L (13-61); SODIUM 141 mmol/L (136-145); TOT PROT 7.3 g/dl (6.4-8.2)
[2018-12-10] MEDS: THIAMINE HCL 100 MG TABLET (FP) PO SCH (21:47)
[2018-12-10] MEDS: hydrOXYzine PAMOATE 50 MG CAPSULE (FP) PO PRN (21:47)
[2018-12-10] MEDS: MELATONIN 5 MG TABLETS PO PRN (21:47)
[2018-12-11] MEDS ORDERED: amLODIPine BESYLATE 5 MG TABLET (FP) PO ONE (06:35)
[2018-12-11] MEDS ORDERED: LISINOPRIL 20 MG TABLET (FP) PO ONE (06:35)
[2018-12-11] MEDS: NICOTINE 21 MG/24 HOURS TOPICAL PATCH TD SCH (09:52)
[2018-12-11] MEDS: PRENATAL VITAMINS W/ FOLIC ACID TABLET (FP) PO SCH (09:52)
[2018-12-11] MEDS: ASPIRIN COATED 81 MG TABLET.EC PO SCH (09:53)
[2018-12-11] MEDS: METOPROLOL TARTRATE 25 MG TABLET (FP) PO SCH ×2 (09:53→21:40)
[2018-12-11] MEDS: hydrOXYzine PAMOATE 50 MG CAPSULE (FP) PO PRN ×2 (09:53→21:40)
[2018-12-11] MEDS: ARIPiprazole 10 MG TABLET PO SCH (17:39)
[2018-12-11] MEDS: THIAMINE HCL 100 MG TABLET (FP) PO SCH (21:40)
[2018-12-11] MEDS: MELATONIN 5 MG TABLETS PO PRN (21:41)
[2018-12-11] MEDS: SUVOREXANT 10 MG TABLET PO PRN (21:41)
[2018-12-11 23:44] LABS: URINE APPEARANCE SLCLOUDY; URINE BILIRUBIN NEGATIVE (<2.0 mg/dL); URINE COLOR DKYELLOW; URINE GLUCOSE (UA) NEGATIVE (NEGATIVE); URINE KETONE NEGATIVE (NEGATIVE); URINE LEUK ESTERASE NEGATIVE (NEGATIVE); URINE NITRITE NEGATIVE (NEGATIVE); URINE PROTEIN NEGATIVE (NEGATIVE)
[2018-12-12] MEDS ORDERED: amLODIPine BESYLATE 5 MG TABLET (FP) PO SCH (08:00)
[2018-12-12] MEDS ORDERED: LISINOPRIL 20 MG TABLET (FP) PO SCH (08:00)
[2018-12-12] MEDS: ASPIRIN COATED 81 MG TABLET.EC PO SCH (09:41)
[2018-12-12] MEDS: ARIPiprazole 10 MG TABLET PO SCH (09:41)
[2018-12-12] MEDS: PRENATAL VITAMINS W/ FOLIC ACID TABLET (FP) PO SCH (09:41)
[2018-12-12] MEDS: METOPROLOL TARTRATE 25 MG TABLET (FP) PO SCH ×2 (09:41→21:32)
[2018-12-12] MEDS: hydrOXYzine PAMOATE 50 MG CAPSULE (FP) PO PRN (09:42)
[2018-12-12] MEDS: NICOTINE 21 MG/24 HOURS TOPICAL PATCH TD SCH (09:42)
[2018-12-12] MEDS ORDERED: PT OWN MED DRAWER 7, Y5N ONE (09:43)
[2018-12-12] MEDS: THIAMINE HCL 100 MG TABLET (FP) PO SCH (21:32)
[2018-12-12] MEDS: MELATONIN 5 MG TABLETS PO PRN (21:32)
[2018-12-12] MEDS: SUVOREXANT 10 MG TABLET PO PRN (21:33)
[2018-12-12] MEDS ORDERED: METOPROLOL TARTRATE 25 MG TABLET (FP) PO SCH (22:00)
[2018-12-13] MEDS: LISINOPRIL 20 MG TABLET (FP) PO SCH (06:12)
[2018-12-13] MEDS: amLODIPine BESYLATE 5 MG TABLET (FP) PO SCH (06:12)
[2018-12-13] MEDS: NICOTINE 21 MG/24 HOURS TOPICAL PATCH TD SCH (09:59)
[2018-12-13] MEDS: ARIPiprazole 10 MG TABLET PO SCH (10:00)
[2018-12-13] MEDS: ASPIRIN COATED 81 MG TABLET.EC PO SCH (10:00)
[2018-12-13] MEDS: PRENATAL VITAMINS W/ FOLIC ACID TABLET (FP) PO SCH (10:00)
[2018-12-13] MEDS: METOPROLOL TARTRATE 25 MG TABLET (FP) PO SCH ×2 (10:00→21:35)
[2018-12-13] MEDS: SUVOREXANT 10 MG TABLET PO PRN (21:35)
[2018-12-13] MEDS: THIAMINE HCL 100 MG TABLET (FP) PO SCH (21:35)
[2018-12-13] MEDS: MELATONIN 5 MG TABLETS PO PRN (21:35)
[2018-12-14] MEDS: LISINOPRIL 20 MG TABLET (FP) PO SCH (06:06)
[2018-12-14] MEDS: amLODIPine BESYLATE 5 MG TABLET (FP) PO SCH (06:06)
[2018-12-14] MEDS: METOPROLOL TARTRATE 25 MG TABLET (FP) PO SCH ×2 (09:42→21:29)
[2018-12-14] MEDS: ARIPiprazole 10 MG TABLET PO SCH (09:42)
[2018-12-14] MEDS: NICOTINE 21 MG/24 HOURS TOPICAL PATCH TD SCH (09:42)
[2018-12-14] MEDS: hydrOXYzine PAMOATE 50 MG CAPSULE (FP) PO PRN (09:42)
[2018-12-14] MEDS: ASPIRIN COATED 81 MG TABLET.EC PO SCH (09:42)
[2018-12-14] MEDS: PRENATAL VITAMINS W/ FOLIC ACID TABLET (FP) PO SCH (09:42)
[2018-12-14] MEDS: MELATONIN 5 MG TABLETS PO PRN (21:29)
[2018-12-14] MEDS: THIAMINE HCL 100 MG TABLET (FP) PO SCH (21:29)
[2018-12-14] MEDS: SUVOREXANT 10 MG TABLET PO PRN (21:29)
[2018-12-15] MEDS: LISINOPRIL 20 MG TABLET (FP) PO SCH (06:11)
[2018-12-15] MEDS: amLODIPine BESYLATE 5 MG TABLET (FP) PO SCH (06:11)
[2018-12-15] MEDS: ARIPiprazole 10 MG TABLET PO SCH (10:06)
[2018-12-15] MEDS: NICOTINE 21 MG/24 HOURS TOPICAL PATCH TD SCH (10:06)
[2018-12-15] MEDS: METOPROLOL TARTRATE 25 MG TABLET (FP) PO SCH ×2 (10:07→21:11)
[2018-12-15] MEDS: ASPIRIN COATED 81 MG TABLET.EC PO SCH (10:07)
[2018-12-15] MEDS: PRENATAL VITAMINS W/ FOLIC ACID TABLET (FP) PO SCH (10:07)
--- NOTE | 2018-12-15 13:26 | PN ---
Psychiatric Progress Note Vital Signs: Vital Signs Period Temp Pulse Resp BP Sys/Vergara Pulse Ox Last 24 Hr 98.3 F 81-83 18-18 133-142/94-98 Date of Session: 12/15/18 Chief Complaint:: "I cannot sleep" HPI: Patient addressing cocaine and cannabis dependence comorbid with nicotine dependence, bipolar disorder, substance-induced mood disorder and substance- induced sleep disorder ROS: Aortic regurgitation Current Medications: Active Medications Generic Name Dose Route Start Last Admin Trade Name Christy PRN Reason Stop Dose Admin Acetaminophen 650 mg 12/09/18 17:28 Tylenol - PO Q4H PRN FEVER Al Hydroxide/Mg Hydroxide 30 ml 12/09/18 17:28 Mylanta Oral Suspension - PO Q6H PRN DYSPEPSIA Amlodipine Besylate 5 mg 12/13/18 06:00 12/15/18 06:11 Norvasc - PO 5 mg DAILY@0600 AWAIS Administration Aripiprazole 10 mg 12/11/18 17:00 12/15/18 10:06 Abilify PO 10 mg DAILY AWAIS Administration Aspirin 81 mg 12/10/18 10:00 12/15/18 10:07 Ecotrin - PO 81 mg DAILY AWAIS Administration Eucalyptus/Menthol/Phenol/Sorbitol 1 each 12/09/18 17:28 Cepastat Lozenge - MM Q4H PRN SORE THROAT Guaifenesin 10 ml 12/09/18 17:28 Robitussin Dm - PO Q6H PRN COUGH Hydroxyzine Pamoate 50 mg 12/10/18 15:10 12/14/18 09:42 Vistaril - PO 50 mg Q4H PRN Administration ANXIETY Ibuprofen 400 mg 12/09/18 17:28 Motrin - PO Q6H PRN Pain level 4-6 Lisinopril 20 mg 12/13/18 06:00 12/15/18 06:11 Prinivil PO 20 mg DAILY@0600 AWAIS Administration Loperamide HCl 4 mg 12/09/18 17:28 12/09/18 22:01 Imodium - PO 4 mg Q6H PRN Administration DIARRHEA Magnesium Citrate 300 ml 12/09/18 17:28 Citroma - PO Q48H PRN CONSTIPATION Magnesium Hydroxide 30 ml 12/09/18 17:28 12/13/18 15:21 Milk Of Magnesia - PO 30 ml DAILY PRN Administration CONSTIPATION Melatonin 5 mg 12/09/18 22:00 12/14/18 21:29 Melatonin PO 5 mg HS PRN Administration INSOMNIA Metoprolol Tartrate 25 mg 12/09/18 22:00 12/15/18 10:07 Lopressor - PO 25 mg BID AWAIS Administration Nicotine 21 mg 12/10/18 11:15 12/15/18 10:06 Nicoderm Patch - TD 21 mg DAILY AWAIS Administration Multivit/Folic Acid/Iron 1 tab 12/10/18 10:00 12/15/18 10:07 Vitamins (Sjr) - PO 1 tab DAILY AWAIS Administration Pseudoephedrine/Triprolidine 1 combo 12/09/18 17:28 Actifed - PO TID PRN NASAL CONGESTION Suvorexant 10 mg 12/11/18 22:00 12/14/18 21:29 Belsomra PO 10 mg HS PRN Administration INSOMNIA Thiamine HCl 100 mg 12/09/18 22:00 12/14/18 21:29 Vitamin B1 - PO 100 mg HS AWAIS Administration Trazodone HCl 50 mg 12/15/18 22:00 Desyrel - PO HS AWAIS Current Side Effect: No Lab tests ordered: Yes Lab tests reviewed: Yes Provider note:: Patient reports sleeping poorly despite taking Belsomra 10 mg + Melatonin 5 mg at bedtime. Requests that Trazadone 50 mg be added to her medication regimen Total face to face time:: 15 Mental Status Exam - Mental Status Exam Alert and Oriented to: Time, Place, Person Cognitive Function: Fair Patient Appearance: Well Groomed Mood: Hopeful, Euthymic Affect: Appropriate Patient Behavior: Cooperative Speech Pattern: Clear Voice Loudness: Normal Thought Process: Intact, Goal Oriented Thought Disorder: Not Present Hallucinations: Denies Suicidal Ideation: Denies Homicidal Ideation: Denies Insight/Judgement: Fair Sleep: Poorly Appetite: Good Muscle strength/Tone: Normal Gait/Station: Normal Psychiatric Treatment Plan - Problem List (1) Bipolar disorder Current Visit: Yes (2) Substance induced mood disorder Current Visit: Yes (3) Substance-induced sleep disorder Current Visit: Yes (4) Cocaine dependence Current Visit: Yes (5) Cannabis dependence Current Visit: Yes (6) Nicotine dependence Current Visit: Yes (7) Aortic regurgitation Current Visit: No Qualifiers: Cardiac valve disease etiology: nonrheumatic Qualified Code(s): I35.1 - Nonrheumatic aortic (valve) insufficiency (8) Congestive heart failure Current Visit: No (9) HTN (hypertension) Current Visit: Yes Initial treatment plan: 1) Start Trazadone 50 mg po HS for insomnia. 2) Continue inpatient rehabilitation
[2018-12-15] MEDS: traZODone HCL 50 MG TABLET (FP) PO SCH (21:11)
[2018-12-15] MEDS: THIAMINE HCL 100 MG TABLET (FP) PO SCH (21:11)
[2018-12-16] MEDS: amLODIPine BESYLATE 5 MG TABLET (FP) PO SCH (06:20)
[2018-12-16] MEDS: LISINOPRIL 20 MG TABLET (FP) PO SCH (06:20)
[2018-12-16] MEDS: ASPIRIN COATED 81 MG TABLET.EC PO SCH (10:17)
[2018-12-16] MEDS: METOPROLOL TARTRATE 25 MG TABLET (FP) PO SCH ×2 (10:17→21:27)
[2018-12-16] MEDS: NICOTINE 21 MG/24 HOURS TOPICAL PATCH TD SCH (10:17)
[2018-12-16] MEDS: hydrOXYzine PAMOATE 50 MG CAPSULE (FP) PO PRN (10:17)
[2018-12-16] MEDS: ARIPiprazole 10 MG TABLET PO SCH (10:17)
[2018-12-16] MEDS: PRENATAL VITAMINS W/ FOLIC ACID TABLET (FP) PO SCH (10:17)
[2018-12-16] MEDS: THIAMINE HCL 100 MG TABLET (FP) PO SCH (21:27)
[2018-12-16] MEDS: traZODone HCL 50 MG TABLET (FP) PO SCH (21:27)
[2018-12-16] MEDS: SUVOREXANT 10 MG TABLET PO PRN (21:28)
[2018-12-17] MEDS: amLODIPine BESYLATE 5 MG TABLET (FP) PO SCH (06:16)
[2018-12-17] MEDS: LISINOPRIL 20 MG TABLET (FP) PO SCH (06:16)
[2018-12-17 06:48] VITALS: TEMP 98.1
[2018-12-17 09:51] VITALS: BP 122/90; PULSE 84
[2018-12-17] MEDS: NICOTINE 21 MG/24 HOURS TOPICAL PATCH TD SCH (10:39)
[2018-12-17] MEDS: ARIPiprazole 10 MG TABLET PO SCH (10:39)
[2018-12-17] MEDS: ASPIRIN COATED 81 MG TABLET.EC PO SCH (10:39)
[2018-12-17] MEDS: METOPROLOL TARTRATE 25 MG TABLET (FP) PO SCH (10:39)
[2018-12-17] MEDS: PRENATAL VITAMINS W/ FOLIC ACID TABLET (FP) PO SCH (10:40)
--- NOTE | 2018-12-17 18:00 | PN ---
[facility] Progress Note Note: Vital Signs Temperature 98.1 F 12/17/18 06:47 Pulse Rate 84 12/17/18 09:30 Respiratory Rate 18 12/17/18 09:30 Blood Pressure 122/90 12/17/18 09:30 O2 Sat by Pulse Oximetry (%) Laboratory Last Values WBC 3.7 K/mm3 (4.0-10.0) L 12/10/18 11:30 RBC 4.54 M/mm3 (3.60-5.2) 12/10/18 11:30 Hgb 13.6 GM/dL (10.7-15.3) 12/10/18 11:30 Hct 40.3 % (32.4-45.2) 12/10/18 11:30 MCV 88.8 fl (80-96) 12/10/18 11:30 MCH 29.9 pg (25.7-33.7) 12/10/18 11:30 MCHC 33.7 g/dl (32.0-36.0) 12/10/18 11:30 RDW 16.5 % (11.6-15.6) H 12/10/18 11:30 Plt Count 260 K/MM3 (134-434) 12/10/18 11:30 MPV 8.1 fl (7.5-11.1) 12/10/18 11:30 Sodium 141 mmol/L (136-145) 12/10/18 11:30 Potassium 4.5 mmol/L (3.5-5.1) 12/10/18 11:30 Chloride 109 mmol/L (98-107) H 12/10/18 11:30 Carbon Dioxide 28 mmol/L (21-32) 12/10/18 11:30 Anion Gap 4 MMOL/L (8-16) L 12/10/18 11:30 BUN 10 mg/dL (7-18) 12/10/18 11:30 Creatinine 0.9 mg/dL (0.55-1.3) 12/10/18 11:30 Creat Clearance w eGFR > 60 (>60) 12/10/18 11:30 Random Glucose 77 mg/dL (74-106) 12/10/18 11:30 Calcium 8.5 mg/dL (8.5-10.1) 12/10/18 11:30 Total Bilirubin 0.6 mg/dL (0.2-1) 12/10/18 11:30 AST 18 U/L (15-37) 12/10/18 11:30 ALT 22 U/L (13-61) 12/10/18 11:30 Alkaline Phosphatase 100 U/L (45-117) 12/10/18 11:30 Total Protein 7.3 g/dl (6.4-8.2) 12/10/18 11:30 Albumin 3.8 g/dl (3.4-5.0) 12/10/18 11:30 Urine Color Dkyellow 12/11/18 12:30 Urine Appearance Slcloudy 12/11/18 12:30 Urine pH 7.0 (5.0-8.0) 12/11/18 12:30 Ur Specific [place] 1.020 (1.010-1.035) 12/11/18 12:30 Urine Protein Negative (NEGATIVE) 12/11/18 12:30 Urine Glucose (UA) Negative (NEGATIVE) 12/11/18 12:30 Urine Ketones Negative (NEGATIVE) 12/11/18 12:30 Urine Blood Negative (NEGATIVE) 12/11/18 12:30 Urine Nitrite Negative (NEGATIVE) 12/11/18 12:30 Urine Bilirubin Negative (<2.0 mg/dL) 12/11/18 12:30 Urine Urobilinogen 2.0 mg/dL (0.2-1.0) H 12/11/18 12:30 Ur Leukocyte Esterase Negative (NEGATIVE) 12/11/18 12:30 RPR Titer Nonreactive (NONREACTIVE) 12/10/18 11:30 HIV 1&2 Antibody Screen Negative 12/10/18 11:30 HIV P24 Antigen Negative 12/10/18 11:30 Patient requested early discharge from rehabilitation, patient currently stable. Patient completed rehab. Patient to follow up with out patient program. Follow up with primary care provider upon discharge. If worsening symptoms are present seek medical attention or attend local ED.
== END 2018-12-17 18:20 | disposition home or self-care (01) | DRG 772 ==
LOC: YASAS 14:20 → Y3W 19:34
PROVIDERS: ADMIT Neuromusculoskeletal Medicine & OMM; ATTEND Neuromusculoskeletal Medicine & OMM
PROC: HZ42ZZZ Group Counseling for Substance Abuse Treatment, Cognitive-Behavioral (ICD-10-PCS; principal; 2018-12-09)
DX: F14.20 Cocaine dependence, uncomplicated (principal); F12.20 Cannabis dependence, uncomplicated; F17.210 Nicotine dependence, cigarettes, uncomplicated; F19.24 Other psychoactive substance dependence with psychoactive substance-induced mood disorder; F19.282 Other psychoactive substance dependence with psychoactive substance-induced sleep disorder; F31.9 Bipolar disorder, unspecified; I35.1 Nonrheumatic aortic (valve) insufficiency; I50.9 Heart failure, unspecified; I11.0 Hypertensive heart disease with heart failure; R01.1 Cardiac murmur, unspecified; Z95.2 Presence of prosthetic heart valve
CPT/HCPCS: 36415; 80053; 81003; 85027; 86593; 87389

== ENCOUNTER 2021-04-03 01:36 | Emergency (ER) | payer OTHER ==
[2021-04-03 01:48] VITALS: BMI 28.2
[2021-04-03 04:02] LABS: INR 1.12 (0.83-1.09); PROTHROMBIN TIME (PATIENT) 13.7 SEC (9.7-13.0)
[2021-04-03 04:05] LABS: ACTIVATED PTT 26.9 SECONDS (25.2-36.5)
[2021-04-03 04:13] LABS: ALBUMIN 3.6 g/dl (3.4-5.0); CALCIUM 9.7 mg/dL (8.5-10.1)
[2021-04-03 04:14] LABS: BLOOD UREA NITROGEN 12.7 mg/dL (7-18)
[2021-04-03 04:17] LABS: CREATININE 0.8 mg/dL (0.55-1.3)
[2021-04-03 04:18] LABS: BILIRUBIN,TOTAL 0.3 mg/dL (0.2-1); TOT PROT 8.3 g/dl (6.4-8.2)
[2021-04-03 04:22] LABS: N-TERMINAL BNP 2111.2 pg/ml (5-125)
[2021-04-03 04:48] LABS: BASO % 0.4 % (0-2.0); EOS % 1.2 % (0-4.5); HEMOGLOBIN 11.3 GM/dL (10.7-15.3); LYMPH % 10.9 % (8-40); MCH 30.3 pg (25.7-33.7); MCHC 33.4 g/dl (32.0-36.0); MONO % 4.1 % (3.8-10.2); NEUT % 83.4 % (42.8-82.8); PLATELET COUNT 693 K/MM3 (134-434); RBC 3.74 M/mm3 (3.60-5.2); RDW 15.9 % (11.6-15.6); WHITE BLOOD COUNT 16.4 K/mm3 (4.0-10.0)
[2021-04-03 04:59] LABS: MAGNESIUM 2.4 mg/dL (1.8-2.4)
[2021-04-03] MEDS ORDERED: ALPRAZolam 1 MG TABLET PO ONE (07:24)
[2021-04-03] MEDS ORDERED: ALPRAZolam 0.25 MG TABLET ONE (07:32)
[2021-04-03] MEDS ORDERED: KCL 10 MEQ IVPB 10 MEQ/100 ML INFUS.BAG IVPB ONE (07:33)
[2021-04-03] MEDS ORDERED: POTASSIUM CHLORIDE TABS 20 MEQ TABLET.ER (FP) PO ONE ×2 (07:56→08:13)
[2021-04-03] MEDS: KCL 10 MEQ IVPB 10 MEQ/100 ML INFUS.BAG IVPB SCH ×3 (08:01→08:03)
[2021-04-03 10:40] VITALS: TEMP 98.4
[2021-04-03 12:44] VITALS: BP 118/80; PULSE 62
== END 2021-04-03 13:09 | disposition short-term general hospital (02) ==
LOC: JER 01:36
DX: R06.02 Shortness of breath (principal); I50.9 Heart failure, unspecified; F14.90 Cocaine use, unspecified, uncomplicated; Z95.4 Presence of other heart-valve replacement
CPT/HCPCS: 36415; 71046-TC-FY; 80053; 82550; 83735; 83880; 84484; 85025; 85610; 85730; 93005; 93010; 99285-25; C9803; U0003; U0005